=== PATIENT | male | born 1970 | race Caucasian/White ===

== ENCOUNTER → 2021-04-20 10:43 | Outpatient (CLI) | payer BC, SELFPAY ==
--- NOTE | 2021-04-20 10:51 | XR_ITS ---
PROCEDURE: XR LUMBAR SPINE MIN 4V CLINICAL INDICATION: ACUTE LT SIDED LOW BACK MARILEE W/ LT SIDED SCIATICA COMPARISON: No exams were available for comparison FINDINGS: Slight levoscoliosis. Moderate diffuse degenerative changes, particularly at L1-2 L4-5 and L5-S1. SI joints are normal. Mild bilateral facet spondylosis of L4-5 and L5-S1. IMPRESSION: Moderate diffuse degenerative changes, particularly at L1-2 L4-5 and L5-S1. No acute fracture or subluxation. Mild bilateral facet spondylosis of the lower lumbar levels. Dictated by: Victor Manuel Marks MD 04/20/2021 15:54 Victor Manuel Marks MD in [place] 04/20/2021 15:54
== END ==
PROVIDERS: PCP Nurse Practitioner Family; Visit Provider Nurse Practitioner Family
DX: M54.42 Lumbago with sciatica, left side (principal)
CPT/HCPCS: 72110

== ENCOUNTER 2024-01-09 09:06 | Outpatient (CLI) | payer BC, SELFPAY ==
--- NOTE | 2024-01-09 09:11 | XR_ITS ---
FINAL REPORT CLINICAL HISTORY: RT KNEE INJURY- Knee popped posteriorly. Pain in anterior medial knee. Swelling that radiates down into leg. FINDINGS: Right knee Three views were obtained. There is no acute fracture or dislocation. There are moderate degenerative changes. Chronic calcifications are seen superior to the patella. There is a small joint effusion. IMPRESSION: Degenerative changes and small joint effusion. Reviewed, Interpreted and Dictated by Alden Shirley III, MD Transcribed by Camilla Boyle Authenticated and [facility]
== END 2024-01-09 23:59 ==
LOC: RAD 09:07
PROVIDERS: PCP Nurse Practitioner; Visit Provider Nurse Practitioner
DX: S89.91XA Unspecified injury of right lower leg, initial encounter (principal)
CPT/HCPCS: 73562

== ENCOUNTER 2024-01-31 15:00 | Outpatient (RCR) | payer BC, SELFPAY | END 2024-01-31 15:05 | disposition home or self-care (01) | LOC: PT 15:00 | PROVIDERS: Visit Provider Nurse Practitioner | DX: M25.561 Pain in right knee (principal); S89.91XA Unspecified injury of right lower leg, initial encounter | CPT/HCPCS: 97014; 97016; 97110; 97140; 97163; 97530; G0283 ==

== ENCOUNTER 2024-09-02 09:10 | Emergency (ER) | payer BC, SELFPAY ==
[2024-09-02 09:11] VITALS: BP 190/82; PULSE 91; RESP 20; TEMP 36.6; O2SAT 99; BMI 38.7
--- NOTE | 2024-09-02 09:18 | ECG_ITS ---
APPROVED REPORT Exam: Resting ECG HR:87 bpm ECG Measurements Heart Rate 87 AXES NJ 155 P 76 QRSd 100 QRS 50 QT 365 T 58 QTc 409 Conclusion SINUS RHYTHM POSSIBLE RIGHT VENTRICULAR CONDUCTION DELAY [RSR (QR) IN V1/V2] BORDERLINE ECG UNCONFIRMED REPORT Electronically signed by : YARIEL BLANCHARD, 09/03/2024 05:27:58
--- NOTE | 2024-09-02 09:25 | CT_ITS ---
PROCEDURE INFORMATION: Exam: CTA Chest With Contrast Exam date and time: 09/02/2024 9:50 AM Age: 54 years old Clinical indication: Other: Sharp back pain; Additional info: HTN, sharp pain into back, concern for dissection TECHNIQUE: Imaging protocol: Computed tomographic angiography of the chest with contrast. Exam focused on the arteries. 3D rendering (Not supervised by radiologist): MIP and/or 3D reconstructed images were created by the technologist. Radiation optimization: All CT scans at this facility use at least one of these dose optimization techniques: automated exposure control; mA and/or kV adjustment per patient size (includes targeted exams where dose is matched to clinical indication); or iterative reconstruction. Contrast material: ISOVUE 370; Contrast volume: 80 ml; Contrast route: INTRAVENOUS (IV); COMPARISON: CR XR CHEST 2V 09/02/2024 9:37 AM FINDINGS: Pulmonary arteries: Normal. No pulmonary emboli. Aorta: Unremarkable. No aortic aneurysm. No aortic dissection. Lungs: Unremarkable. No consolidation. No masses. Pleural spaces: Unremarkable. No pneumothorax. No pleural effusion. Heart: Unremarkable. No cardiomegaly. No pericardial effusion. Lymph nodes: Unremarkable. No enlarged lymph nodes. Bones/joints: Unremarkable. No acute fracture. Soft tissues: Unremarkable. IMPRESSION: No acute findings.
--- NOTE | 2024-09-02 09:25 | ED_ITS ---
Discharge Plan Disposition Patient Disposition: Home, Self-Care Condition: Good Prescriptions Prescriptions: New hydroxyzine pamoate [Vistaril] 25 mg capsule 25 mg PO ONCE PRN (Reason: anxiety) Qty: 30 0RF Referrals Follow up/Referrals: Karina Hankins APRN [Primary Care Provider] - See instructions Clinical Impressions Clinical Impression: Acute anxiety, Hypertension, Back pain Instructions Patient Instructions: Anxiety Disorders Print Language Print Language: Hungarian Discharge ED Provider: Job Multani General Adult HPI General Chief complaint: Anxiety Stated complaint: arms heavy, pain in back, sweating, high heart rat Time Seen by Provider: 09/02/24 09:14 Mode of Arrival: Ambulatory Source of Information: Patient Limitations: No Limitations Description of Symptoms (Recalled from ER Triage Doc. by RN): Patient presents to ED stating he feels 'different'. Patient reports it started last night around 02:30am. Patient states it felt like an anxiety attack. Reports feels like a knife in his back . States his legs and arm feel heavy as well. History of Present Illness HPI narrative: 54yoM patient presents with a chief complaint of feeling weird this morning, experiencing heavy limbs, and a sensation of a knife stuck in his upper back. He reports waking up last night around 2:30 AM with symptoms resembling an anxiety attack, including increased heart rate and diaphoresis. The patient describes a persistent tingling sensation in all of his limbs and heaviness in his legs while walking. He mentions feeling delayed and having difficulty describing the weird sensation. He has a history of hypertension and is currently taking Bystolic (20 mg) and Losartan (50 mg) for blood pressure management. He reports a blood pressure reading of 154/88 earlier in the day. The patient denies any recent fever, shortness of breath, abdominal pain, nausea, or vomiting. He mentions not having eaten anything this morning. The patient has a history of anxiety and is taking Prozac. He reports being under significant financial stress Please note that above description of symptoms, in this electronic medical record under categorization of recalled from ER triage doctor by RN are reflective of an initial nursing assessment, however, is not reflective of my full history and physical exam that was personally taken and clarified. Consequentially, this preceding description of symptoms, which may include the patient's categorized chief complaint in the EMR, do not reflect my personal clinical impression, and the ultimate description of history of present illness and patient stated complaints should be deferred to this section of the note. Unless stated otherwise or congruent with this section of the note, additional signs, symptoms, or incongruence should be interpreted as inaccurate with my clinical impression. Related Data Previous Rx's ?Medication ?Instructions ?Recorded hydroxyzine pamoate 25 mg capsule 25 mg PO ONCE PRN anxiety #30 caps 09/02/24 (Vistaril) Allergies Allergy/AdvReac Type Severity Reaction Status Date / Time No Known Allergies Allergy Verified 09/02/24 09:25 [facility] Disclaimer: The information contained in this section may have been updated after the patient was seen, as this information can be updated by other users. Social History Smoking Status: Current every day smoker alcohol intake: never current occupational status: employed Travel in the last 8 weeks: None ROS Obtained: Yes Systems reviewed as appropriate & no additional complaints except as documented Physical Exam General General appearance: alert and in no apparent distress Head Head exam: atraumatic and normocephalic Eye Eye exam: Present normal appearance and EOMI ENT ENT exam: Present normal exam Neck Neck exam: Present normal inspection Chest Chest inspection: Present normal inspection and symmetric chest wall rise Respiratory Respiratory exam: Present normal lung sounds bilaterally; Absent respiratory distress or wheezes Cardiovascular Cardiovascular exam: Present regular rate, normal rhythm and normal heart sounds; Absent bradycardia or tachycardia Abdominal Exam Abdominal exam: Present soft and normal bowel sounds; Absent distention, tenderness, guarding or rebound exam: Present deferred Extremities Exam Extremities exam: Present normal inspection and full ROM; Absent tenderness Back Exam Back exam: Present normal inspection Neurological Exam Neurological exam: Present alert and oriented X3 Psychiatric Psychiatric exam: Present normal affect and normal mood Skin Skin exam: Present warm, dry, intact and normal color; Absent rash Medical Decision Making Medical Records Medical records reviewed: Yes I reviewed the patient's medical records. Screening: Per USPSTF and CDC recommendations, given the prevalence of disease in our region, it is our hospital?s policy to screen for HIV and viral Hepatitis for all patients aged 18 and over and those with ongoing risk factors. Jesse Inquiry Pt receiving controlled substance: No Jesse was queried for this patient: No Vital Signs: 09/02/24 09:11 09/02/24 10:01 09/02/24 10:30 Temperature 97.8 F Temperature Source Oral Pulse Rate 77 71 Pulse Rate [Right Brachial] 91 H Respiratory Rate 20 Blood Pressure 154/69 H 149/71 H Blood Pressure [Right Arm] 190/82 H Blood Pressure Mean [Right Arm] 118 Blood Pressure Source [Right Arm] Manual Cuff/ Auscultation Blood Pressure Position [Right Arm] Supine 02 Sat by Pulse Oximetry 99 97 95 Oxygen Delivery Method Room Air Room Air Lab Data Lab Results 09/02/24 09:17: WBC 7.9, RBC 5.45, Hgb 17.4, Hct 49.4, MCV 90.7, MCH 32.0 H, MCHC 35.3, RDW 13.0, Plt Count 197, MPV 7.5, Neut % (Auto) 52.0, Lymph % (Auto) 37.5, Huron % (Auto) 6.4, Eos % (Auto) 2.5, Baso % (Auto) 1.6, Neut # (Auto) 4.1, Lymph # (Auto) 3.0, Hur[place] # (Auto) 0.5, Eos # (Auto) 0.2, Baso # (Auto) 0.1, Sodium 138, Potassium 4.5, Chloride 102, Carbon Dioxide 27, Anion Gap 13.5, BUN 18, Creatinine 1.00, Estimated Creat Clear 148, Estimated GFR 78, Est GFR ( Amer) 95, Glucose 185 H, Calcium 9.0, Total Bilirubin 1.1, AST 49, ALT 50, Alkaline Phosphatase 103, Troponin I < 0.01, Total Protein 8.3 H, Albumin 4.6, Globulin 3.7 H, Albumin/Globulin Ratio 1.2, HIV 1&2 Antibody Rapid Nonreactive 09/02/24 09:17 09/02/24 09:17 Orders (Tests/Meds): ED MEDICATIONS Generic Name Dose Route Start Last Admin Trade Name Freq PRN Reason Stop Dose Admin Sodium Chloride 10 ml 09/02/24 09:51 09/02/24 09:52 Sodium Chloride 0.9% 10ml Syr (Rad Only) IV 10/02/24 09:50 10 ml NEEDED PRN Administration Maintain IV Site Discontinued Medications Generic Name Dose Route Start Last Admin Trade Name Freq PRN Reason Stop Dose Admin Hydroxyzine Pamoate 50 mg 09/02/24 09:25 09/02/24 09:31 Hydroxyzine Pamoate 25mg Capsule PO 09/02/24 09:26 50 mg ONCE ONE Administration Iopamidol 80 ml 09/02/24 09:51 09/02/24 09:52 Iopamidol-370 (76%);100ml Bottle IV 09/02/24 09:52 80 ml ONCE ONE Administration Sodium Chloride 50 ml 09/02/24 09:51 09/02/24 09:51 0.9 % Sodium Chloride 50 Ml Vial IV 09/02/24 09:52 50 ml ONCE ONE Administration ORDERS Category Date Time Status CT angio chest - dissection Stat Cat Scan 09/02/24 09:25 Completed XR chest 2V Stat Exams 09/02/24 09:26 Completed Complete Blood Count Auto Diff Stat Lab 09/02/24 09:17 Completed Comprehensive Metabolic Panel Stat Lab 09/02/24 09:17 Completed HIV (1&2) Antibody Rapid Stat Lab 09/02/24 09:17 Completed Hep C Ab with Reflex to RNA Stat Lab 09/02/24 09:17 Received Troponin I Stat Lab 09/02/24 09:17 Completed ECG Data Tracing #1: I reviewed this ECG and interpreted as documented below: Normal sinus rhythm, normal axis, normal intervals, no noted ST elevation HEART Score History (anamnesis): Slightly suspicious ECG: Normal Age: 45-65 years Risk factors: 1-2 risk factors Troponin: </= normal limit HEART Score: 2 Medical Decision Narrative: Patient with history and exam per above presenting for evaluation of hypertension, self-reported strange feeling in the limbs as well as sharp pain between shoulder blades Diagnoses considered include hypertensive urgency, anxiety, panic attack, aortic dissection, ACS ED workup and treatment included: As above Labs were independently interpreted by me, significant for negative troponin, no acute actionable electrolyte abnormalities, CMP grossly nonactionable. No noted leukocytosis, no noted anemia, CBC grossly nonactionable Imaging was independently visualized and interpreted by me, significant for CTA chest with no acute pathology on my review, no noted dissection or aneurysm. No noted acute cardiopulmonary pathology. Chest x-ray with no acute cardiopulmonary process Please refer to radiology report for full details. My clinical impression at this time is most consistent with anxiety, patient states he is feeling much better at this time, believes hydroxyzine helped him. Blood pressure has improved. At this time medically cleared for discharge with outpatient follow-up. Given strict instructions to return to ED if symptoms worsen otherwise he is going to follow-up with his primary care provider as he has a scheduled appointment coming up in the next week. Prescribing short course of hydroxyzine. I discussed my clinical impression with patient and answered all questions. At this time, the evidence for any other entities in the differential is insufficient to warrant any further testing or ED observation. This was explained to the patient. The patient was advised that persistent or worsening symptoms require further evaluation. Critical Care Critical Care Time Critical Care Time: Yes Attestation: On 09/02/24, the high probability of a clinically significant, sudden or life threatening deterioration of the following system(s) required my full and direct attention, intervention and personal management. The time I documented below is in addition to time spent performing reported procedures but includes the following listed in this critical care notation. Total Time Total Critical Care Time: 35
--- NOTE | 2024-09-02 09:26 | XR_ITS ---
PROCEDURE INFORMATION: Exam: XR Chest Exam date and time: 09/02/2024 9:37 AM Age: 54 years old Clinical indication: Other: Back pain, mediastinum eval; Additional info: HTN, back pain, mediastinum eval TECHNIQUE: Imaging protocol: Radiologic exam of the chest. Views: 2 views. COMPARISON: No relevant prior studies available. FINDINGS: Lungs: Unremarkable. No consolidation. Pleural spaces: Unremarkable. No pleural effusion. No pneumothorax. Heart/Mediastinum: Unremarkable. No cardiomegaly. Bones/joints: Unremarkable. IMPRESSION: No acute findings.
[2024-09-02] MEDS: hydrOXYzine pamoate 25MG CAPSULE 50 MG PO (09:31)
[2024-09-02 09:37] LABS: Basophils # 0.1 K/mm3 (0-0.2); Basophils % 1.6 % (0.1-2.0); Eosinophils # 0.2 K/mm3 (0.0-0.4); Eosinophils % 2.5 % (0.1-12.0); Hematocrit 49.4 % (42.0-52.0); Hemoglobin 17.4 g/dL (14.1-18.0); Lymphocytes % 37.5 % (10-50); Mean Corpuscular HGB Conc 35.3 g/dL (31.8-35.4); Mean Corpuscular Volume 90.7 fl (80-94); Mean Platelet Volume 7.5 fl (7.4-10.4); Monocytes # 0.5 K/mm3 (0.1-1.0); Monocytes % 6.4 % (1.7-9.3); Neutrophils # 4.1 K/mm3 (1.8-7.8); Platelet Count 197 K/mm3 (142-424); Red Blood Count 5.45 M/mm3 (4.60-6.20); White Blood Count 7.9 K/mm3 (4.8-10.8)
[2024-09-02 09:39] LABS: Chloride 102 mmol/L (98-107)
[2024-09-02 09:40] LABS: Albumin Level 4.6 g/dl (3.5-5.0); Potassium 4.5 mmoL/L (3.5-5.1); Sodium 138 mmol/L (136-145)
[2024-09-02 09:42] LABS: Alanine Aminotransferase 50 U/L (12-78); Anion Gap 13.5 mEq/L (5-15); Aspartate Amino Transferase 49 U/L (17-59); Blood Urea Nitrogen 18 mg/dl (9-20); Carbon Dioxide 27 mmol/L (22.0-30.0); Creatinine Clearance Estimated 148 mL/min (50-200); Estimated Glomerular Filt Rate 78 ml/min (>60); GFR (African American) 95 ML/MIN (>60)
[2024-09-02 09:43] LABS: Albumin/Globulin Ratio 1.2 (1.1-1.8); Alkaline Phosphatase 103 U/L (38-126); Bilirubin,Total 1.1 mg/dl (0.2-1.3); Globulin 3.7 g/dL (1.3-3.2); Glucose 185 mg/dl (74-100); Total Protein,Serum 8.3 g/dl (6.3-8.2)
[2024-09-02] MEDS: 0.9 % SODIUM CHLORIDE 50 ML VIAL IV (09:51)
[2024-09-02] MEDS: IOPAMIDOL-370 (76%);100ML BOTTLE 80 ML IV (09:52)
[2024-09-02] MEDS: SODIUM CHLORIDE 0.9% 10ML SYR (RAD ONLY) 10 ML IV (09:52)
[2024-09-02 10:01] VITALS: BP 154/69; PULSE 77; O2SAT 97
[2024-09-02 10:19] LABS: Troponin I < 0.01 ng/ml (0.00-0.034)
[2024-09-02 10:30] VITALS: BP 149/71; PULSE 71; O2SAT 95
[2024-09-02 10:32] LABS: HIV (1&2) Antibody Rapid NONREACTIVE (NONREACTIVE)
[2024-09-02 11:01] VITALS: BP 165/64; PULSE 67; O2SAT 97
[2024-09-02 11:13] VITALS: BP 165/64; PULSE 66; RESP 18; TEMP 37; O2SAT 97
[2024-09-03 09:38] LABS: HCV Ab Non Reactive (Non Reactive)
== END 2024-09-02 11:20 | disposition home or self-care (01) ==
PROVIDERS: Emergency Provider Student in an Organized Health Care Education/Training Program; PCP Nurse Practitioner
DX: R00.0 Tachycardia, unspecified (principal); M54.9 Dorsalgia, unspecified; R61 Generalized hyperhidrosis; I10 Essential (primary) hypertension; F41.9 Anxiety disorder, unspecified; F17.210 Nicotine dependence, cigarettes, uncomplicated
CPT/HCPCS: 71046; 71275; 80053; 84484; 85025; 86803; 87389; 93005; 99291; Q9967

== ENCOUNTER 2024-10-16 12:59 | Outpatient (CLI) | payer BC, SELFPAY ==
--- NOTE | 2024-10-16 13:05 | CT_ITS ---
APPROVED REPORT Field Insurance Sales Manager: CLINICAL INDICATION Risk stratification TECHNIQUE Image Acquisition: A 128 slice MDCT scanner (CELtraka View) was used for data acquisition. A noncontrast coronary calcium scan was performed. A CT attenuation threshold of 130 Hounsfield units (HU) was used for the detection of calcium in contiguous voxels of 1 sq mm in area to be counted as individual lesions. A tube voltage of 120 KVp was used. The patient received no medications prior to the coronary calcium CT. Image Reconstruction Transaxial images were reconstructed at 0.67 mm slide thickness. Data was reviewed interactively on an advanced workstation capable of 2 and 3-dimensional displays in all conventional reconstruction formats, including multiplanar reformations, maximum intensity projections, curved multiplanar reformations, and volume rendered reconstructions. When applicable, selected routine images describing the relevant coronary anatomy and pathology were saved and sent to PACS. Complications None Technical Quality Overall image quality was good. Total DLP (Dose-Length Product) is 21.5.9 mGy-cm. The reported value represents the total of one or more individual components during the CT acquisition of this date and at this time, and as such, the same value may appear in more than one CT report depending on the interpreting/reporting physicians. COMPARISON None FINDINGS CT Coronary Calcium Scoring LMA (Left Main Artery) = 0 LAD (Left Anterior Descending) = 175 LCX (Left Coronary Circumflex) = 174 RCA (Right Coronary Artery) = 103 Total Calcium Score = 453 using the AJ-130 method. There is also calcification in the aortic valve and the mitral annulus. IMPRESSION -Coronary artery calcification is present. -Total Calcium Score (Agatston Score) = 453 using the AJ-130 method. -The observed calcium score of 453 is at 96th percentile for subjects of the same age, sex, and race/ethnicity. The interpretation of the calcium heart score is based on the following continuum*: 0 = no calcified plaque detected (risk of coronary artery disease is very low ??? less than 5%) 1-10 = calcium detected in extremely minimal levels (risk of coronary diseases is still low ??? less than 10%) 11-100 = mild levels of plaque detected with certainty (mild or minimal narrowing of heart arteries is likely) 101-400 = definite,at least moderate levels of plaque detected (relatively high risk of a heart attack within 3-5 years) >401-999 = extensive levels of plaque detected (high risk of heart attack, high levels of vascular disease are present, high likelihood of at least one significant coronary narrowing) *The calcium heart score quantifies the burden of coronary calcification/plaque in the coronary arteries. The calcium heart score does not evaluate the presence or the burden of non-calcified (i.e. soft) plaque. The coronary and cardiac findings of this Coronary Calcium CT were reviewed, reported, and signed by Minesh Youssef MD (Implementation Manager). Conclusion Electronically signed by : Veronika Youssef MD 10/17/2024 12:30:44
== END 2024-10-16 23:59 | disposition home or self-care (01) ==
LOC: RAD 13:00
PROVIDERS: PCP Nurse Practitioner; Visit Provider Physician Assistant
DX: I25.10 Atherosclerotic heart disease of native coronary artery without angina pectoris (principal); Z82.49 Family history of ischemic heart disease and other diseases of the circulatory system
CPT/HCPCS: 75571

== ENCOUNTER 2024-10-16 13:02 | Outpatient (CLI) | payer BC, SELFPAY ==
--- NOTE | 2024-10-16 13:13 | CA_ITS ---
APPROVED REPORT EXAM: Comprehensive 2D, Doppler, and color-flow Echocardiogram Manager Music: Alberta Alvarez RVT Ht: 5 ft 10 in Wt: 280lbs BSA: 2.41 BP: 159/80 mmHg Indications: HTN,SMOKER,ASCVD 2D Dimensions IVSd 1.08 cm M: 0.6-1.2 LVEF (Visual) 62.40 % PWd 0.94 cm M: 0.6 - 1.2 LA Volume 52.40 mL LVDd 4.73 cm M: 4.2 - 5.9 LA Volume Index 21.74 mL/m2 (M/F) 16-34 LVDs 3.14 cm M: 2.5 - 4.0 EF AP4 59.70 % GL Strain -19.8 % M-Mode Dimensions LA Diam 3.73 cm (1.9-4.0) LV Diastology E Decel Time 300 (160-240 msec) E/A Ratio 1.1 Aortic Valve ROSIBEL Index 0.92 cm2/m2 AoV Peak Hugo. 196.0 (50-130 cm/s) AO Peak GR. 15.40 mmHg AO Mean GR. 7.70 (<5 mmHg) AO VTI 42.4 (18-25 cm) ROSIBEL (VTI) 2.27 (2.5-4.5 cm2) Mitral Valve MV E Max Hugo. 79.0 (40-130 cm/s) MV A Velocity 71.0 (40-130 cm/s) E/A Ratio 1.10 MV PHT 88.0 ms Pulmonary Valve PV Peak Velocity 78.0 (50-150 cm/s) Tricuspid Valve TR P. Velocity 195.00 cm/s RAP Estimate 10.00 mmHg RVSP 25.20 mmHg Left Ventricle The left ventricle is normal size. The left ventricular systolic function is normal. The left ventricular ejection fraction is within the normal range. There is increased LV wall thickness. There is normal LV segmental wall motion. The left ventricular diastolic function is normal. LVEF is 55%. Right Ventricle Right ventricle is mildly dilated. The right ventricular systolic function is normal. Atria The left atrium size is normal. The right atrium size is normal. There is no Doppler evidence of interatrial shunt. Aortic valve is mildly thickened. Aortic Valve Mild aortic stenosis. ROSIBEL by continuity equation is 2.0 cm???. Peak velocity 2.0 m/s. Mean AV gradient 8 mmHg. Max AV gradient 15.4 mmHg. No aortic regurgitation is present. Mitral Valve The mitral valve leaflets are mildly thickened. No evidence of mitral valve stenosis. Trace mitral regurgitation. Tricuspid Valve Tricuspid valve is grossly normal in structure and function. Trace tricuspid regurgitation. There is insufficient TR jet to estimate RVSP. Pulmonic Valve The pulmonary valve is normal in structure. Trace pulmonic regurgitation. Great Vessels The aortic root is normal in size. IVC is normal in size and collapses >50% with inspiration. Pericardium There is no pericardial effusion. Other Information Study Quality: Fair Conclusion Normal biventricular systolic function. Mild RV dilation. Mild (ROSIBEL by continuity equation is 2.0 cm???. Peak velocity 2.0 m/s. Mean AV gradient 8 mmHg. Max AV gradient 15.4 mmHg). Electronically signed by : Veronika Youssef MD 10/22/2024 15:14:54
== END 2024-10-16 23:59 | disposition home or self-care (01) ==
LOC: RT 13:02
PROVIDERS: PCP Nurse Practitioner; Visit Provider Physician Assistant
DX: I51.7 Cardiomegaly (principal); I25.10 Atherosclerotic heart disease of native coronary artery without angina pectoris; Z82.49 Family history of ischemic heart disease and other diseases of the circulatory system
CPT/HCPCS: 93306

== ENCOUNTER 2024-11-05 07:46 | Outpatient (CLI) | payer BC, SELFPAY ==
--- NOTE | 2024-11-05 | CA_ITS ---
APPROVED REPORT Exam: Exercise Treadmill Technologist: Gilma Thao Ht: 5 ft 10 in Wt: 280 lbs BSA: 2.41 m2 Medical History Medications: Fluoxetine, HCTZ, Vistaril, Nebivolol Allergies: No known drug allergies Stress Test Details Test: Exercise stress testing was performed using a Amado protocol. HR Resting HR: 79 bpm Max Heart Rate (APMHR): 167 bpm Max HR Achieved: 146 bpm Target HR (85% APMHR): 142 bpm % of APMHR: 87 Recovery HR: 99 bpm HR response to stress: Normal HR response to stress BP Resting BP: 179.0/86.0 mmHg Max BP: 182.0/90.0 mmHg Recovery BP: 161.0/68.0 mmHg BP response to stress: Normal blood pressure response to stress. ECG Resting ECG: SR Stress EC.[address] depression Arrhythmia: PVCs Recovery ECG: Return to baseline within 3 minutes of recovery Recovery Arrhythmia: PVCs Clinical Highest Stage Achieved: III Stress ECG Conclusion Max HR: 146 % of PM: 87% Max BP: 180/90 METs: 10.3 Test stopped due to: Fatigue Symptoms: fatigue Arrhythmias/Ectopy: PVCs ST-T Changes: 0.[address] depression Conclusion: Average exercise capacity. Normal EKG response to exercise. GXT only (no imaging). Electronically signed by : Veronika Youssef MD 11/06/2024 20:30:18
--- NOTE | 2024-11-05 07:47 | NM_ITS ---
APPROVED REPORT Exam: Nuclear Stress Test Indication: HTN, CAD, Tobacco use, Family history Patient Location: Outpatient Stress Tech: Gilma Banuelos [place] Tech:Brianna Cuba, ARRT, RT (R)(N) Ht: 5 ft 10 in Wt: 280 lbs HR: 78 bpm BP: 179/86 mmHg BSA: 2.41 m2 TID: 1.01 BMI: 40.1 History: HTN, CAD, Tobacco use, Family history Procedure: Patient exercised on Amado protocol 9:00 minutes and sec, resting heart rate 78 bpm, resting blood pressure 179/86 mmHg, with exercise maximum heart rate achived was 146 bpm which is % of the maximum predicted heart rate and blood pressure was 182/90 mmHg. Test was stopped due to SOB. Patient has average exercise capacity, achieved 10.3 METs of workload on treadmill, the blood pressure response to exercise was normal. Cardiac Stress and Resting SPECT Images: Cardiac Stress and Resting SPECT images were obtained using technetium 99m Myoview 31.6 mCi stress and 10.29 mCi at rest. Resting and stress imaging in supine and prone positions demonstrate a medium-sized, moderate, partially reversible perfusion defects in the basal to mid inferior LV foster. Gated imaging demonstrates normal global and regional LV systolic function. LVEF is calculated at 57%. Conclusion: Medium-sized, moderate, partially reversible perfusion defects in the basal to mid inferior LV foster. Findings are suggestive of partial reversible ischemia. Gated imaging demonstrates normal global and regional LV systolic function. LVEF is calculated at 57%. Electronically signed by : Veronika Youssef MD 11/06/2024 20:26:12
[2024-11-05] MEDS: ISOTOPE MYOVIEW (PER STUDY) 1 DOSE IV (09:23)
[2024-11-05] MEDS: SODIUM CHLORIDE 0.9% 10ML SYR (RAD ONLY) 10 ML IV ×2 (09:23)
== END 2024-11-05 23:59 | disposition home or self-care (01) ==
PROVIDERS: PCP Nurse Practitioner; Visit Provider Physician Assistant
DX: R93.1 Abnormal findings on diagnostic imaging of heart and coronary circulation (principal); I10 Essential (primary) hypertension; E66.01 Morbid (severe) obesity due to excess calories
CPT/HCPCS: 78452; 93017; 93018; A9502

== ENCOUNTER 2024-11-18 14:58 | Outpatient (CLI) | payer BC, SELFPAY ==
[2024-11-18 15:24] LABS: Basophils # 0.1 K/mm3 (0-0.2); Basophils % 1.4 % (0.1-2.0); Eosinophils # 0.2 K/mm3 (0.0-0.4); Eosinophils % 3.1 % (0.1-12.0); Hematocrit 41.6 % (42.0-52.0); Hemoglobin 14.7 g/dL (14.1-18.0); Lymphocytes # 2.4 K/mm3 (0.7-4.5); Lymphocytes % 33.3 % (10-50); Mean Corpuscular HGB Conc 35.3 g/dL (31.8-35.4); Mean Corpuscular Volume 93.5 fl (80-94); Mean Platelet Volume 10.2 fl (7.4-10.4); Monocytes # 0.8 K/mm3 (0.1-1.0); Monocytes % 11.2 % (1.7-9.3); Neutrophils # 3.6 K/mm3 (1.8-7.8); Neutrophils % 50.6 % (37.0-80.0); Platelet Count 204 K/mm3 (142-424); Red Blood Count 4.45 M/mm3 (4.60-6.20); Red Cell Distribution Width 11.8 % (11.5-17.5); White Blood Count 7.1 K/mm3 (4.8-10.8)
[2024-11-18 15:36] LABS: Alanine Aminotransferase 38 U/L (12-78); Alkaline Phosphatase 113 U/L (38-126); Aspartate Amino Transferase 39 U/L (17-59); Bilirubin,Direct 0.2 mg/dl (0.0-0.4); Bilirubin,Total 0.8 mg/dl (0.2-1.3); Bilirubin,Unconjugated 0.6 mg/dL (0.0-1.1); Blood Urea Nitrogen 21 mg/dl (9-20); Calcium 9.2 mg/dl (8.4-10.2); Carbon Dioxide 29 mmol/L (22.0-30.0); Cholesterol 263 mg/dl (140-200); Glucose 99 mg/dl (74-100); HDL Cholesterol 50 mg/dl (40-60); Total Protein,Serum 7.5 g/dl (6.3-8.2)
[2024-11-18 15:41] LABS: Albumin Level 4.3 g/dl (3.5-5.0); Chloride 100 mmol/L (98-107); Potassium 4.3 mmoL/L (3.5-5.1); Sodium 134 mmol/L (136-145); Triglycerides 443 mg/dl (30-150)
[2024-11-18 15:43] LABS: Estimated Glomerular Filt Rate 70 ml/min (>60); GFR (African American) 85 ML/MIN (>60)
[2024-11-18 15:44] LABS: Anion Gap 9.3 mEq/L (5-15); Bilirubin,Indirect 0.6 mg/dL (0.0-0.9)
[2024-11-18 15:45] LABS: Chol/HDL Ratio 5.3 (1-3.5)
[2024-11-18 15:47] LABS: Direct LDL Cholesterol 40.76 mg/dL (100-129)
== END 2024-11-18 23:59 | disposition home or self-care (01) ==
LOC: LAB 14:59
PROVIDERS: PCP Nurse Practitioner; Visit Provider Physician Assistant
DX: R93.1 Abnormal findings on diagnostic imaging of heart and coronary circulation (principal); R73.03 Prediabetes; Z82.49 Family history of ischemic heart disease and other diseases of the circulatory system; I25.10 Atherosclerotic heart disease of native coronary artery without angina pectoris; E66.813 Obesity, class 3; E66.01 Morbid (severe) obesity due to excess calories; Z68.41 Body mass index [BMI] 40.0-44.9, adult; I10 Essential (primary) hypertension; Z72.0 Tobacco use
CPT/HCPCS: 80048; 80061; 80076; 83735; 85025

== ENCOUNTER 2024-11-22 08:24 | Day surgery (SDC) | payer BC, SELFPAY ==
[2024-11-22] VITALS (11 sets, daily range): BP systolic 110–141; BP diastolic 61–74; PULSE 62–78; RESP 18; O2SAT 94–99; BMI 40.7
--- NOTE | 2024-11-22 07:22 | IR_ITS ---
APPROVED REPORT Patient Location: Outpatient PROCEDURES Left heart catheterization Left ventriculogram Selective coronary angiogram INDICATION Abnormal Myoview, Angina pectoris, Informed consent was obtained prior to the procedure. COMPLICATIONS None Estimated Blood Loss: Less than 10 mls TECHNIQUE One percent lidocaine used to anesthetize the right anterior aspect of the wrist. The right radial artery was accessed via the Seldinger technique. A 6 [place] sheath was placed in the right radial artery. 2.5 mg of Verapamil, 800 mcg of nitroglycerin, 1mg Lidocaine and 5000 U Heparin were given through the arterial sheath. The 6 [place] JL 3 guide catheter was also used to perform left heart catheterization, left ventriculogram and selective coronary angiogram. At the end of the procedure the sheath was removed good hemostasis was achieved using Traclet band, patient was transferred to the postop holding area in stable condition. ANGIOGRAPHIC RESULTS The left main artery Normal The left anterior descending artery Is a small vessel and has proximal 10% luminal irregularity with a mid vessel 20% luminal regularities The circumflex artery Massively large and dominant which is normal through the proximal and mid segment. 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 Recommend medical management with aggressive risk factor modification and maximizing antianginal medications 2. Should patient develop recalcitrant angina pectoris refractory to medical management the terminal obtuse marginal artery/posterior descending artery could be stented however as of now I think medical management is most warranted Electronically signed by : Jr Esposito MD 11/22/2024 14:28:48
[2024-11-22 09:06] LABS: Basophils # 0.1 K/mm3 (0-0.2); Basophils % 1.1 % (0.1-2.0); Eosinophils # 0.2 K/mm3 (0.0-0.4); Eosinophils % 2.9 % (0.1-12.0); Hematocrit 45.5 % (42.0-52.0); Hemoglobin 15.8 g/dL (14.1-18.0); Lymphocytes # 2.6 K/mm3 (0.7-4.5); Lymphocytes % 33.1 % (10-50); Mean Corpuscular HGB Conc 34.7 g/dL (31.8-35.4); Mean Corpuscular Hemoglobin 32.6 pg (27.0-31.2); Mean Platelet Volume 10.1 fl (7.4-10.4); Monocytes # 0.7 K/mm3 (0.1-1.0); Monocytes % 9.2 % (1.7-9.3); Neutrophils # 4.2 K/mm3 (1.8-7.8); Neutrophils % 53.2 % (37.0-80.0); Platelet Count 236 K/mm3 (142-424); Red Blood Count 4.84 M/mm3 (4.60-6.20); Red Cell Distribution Width 11.9 % (11.5-17.5); White Blood Count 7.8 K/mm3 (4.8-10.8)
[2024-11-22 09:09] LABS: Anion Gap 12.7 mEq/L (5-15); Blood Urea Nitrogen 22 mg/dl (9-20); Calcium 9.1 mg/dl (8.4-10.2); Carbon Dioxide 26 mmol/L (22.0-30.0); Chloride 103 mmol/L (98-107); Creatinine Clearance Estimated 156 mL/min (50-200); Estimated Glomerular Filt Rate 78 ml/min (>60); GFR (African American) 95 ML/MIN (>60); Glucose 137 mg/dl (74-100); Potassium 4.7 mmoL/L (3.5-5.1); Sodium 137 mmol/L (136-145)
[2024-11-22] MEDS: HEPARIN 1,000 UNITS/500ML NS (CATH LAB) 3000 UNIT IV (11:19)
[2024-11-22] MEDS: diphenhydrAMINE 50MG/ML VIAL 50 MG IV (11:20)
[2024-11-22] MEDS: VERAPAMIL 2.5MG/ML 2ML VIAL 2.5 MG IV (11:20)
[2024-11-22] MEDS: LIDOCAINE 1% 10ML MDV 20 ML IJ (11:20)
[2024-11-22] MEDS: NITROGLYCERIN 800MCG/8ML SYR (CATH LAB) 800 MCG IA (11:21)
[2024-11-22] MEDS: 0.9 % SODIUM CHLORIDE 500 ML 25 ML IV (11:21)
[2024-11-22] MEDS: MIDAZOLAM HCL 1MG/ML 5ML VIAL 1 MG IV (11:36)
[2024-11-22] MEDS: FENTANYL 100MCG/2ML VIAL 50 MCG IV (11:36)
[2024-11-22] MEDS: IOPAMIDOL-370 (76%);100ML BOTTLE 50 ML IV (13:30)
== END 2024-11-22 14:29 | disposition home or self-care (01) ==
PROVIDERS: PCP Nurse Practitioner; Visit Provider Internal Medicine
DX: I25.118 Atherosclerotic heart disease of native coronary artery with other forms of angina pectoris (principal); I10 Essential (primary) hypertension; R93.1 Abnormal findings on diagnostic imaging of heart and coronary circulation; E66.01 Morbid (severe) obesity due to excess calories; Z68.41 Body mass index [BMI] 40.0-44.9, adult; Z82.49 Family history of ischemic heart disease and other diseases of the circulatory system; F17.210 Nicotine dependence, cigarettes, uncomplicated; Z79.899 Other long term (current) drug therapy
CPT/HCPCS: 80048; 85025; 93458; 99152; C1725; C1769; J1200; J1644; J2250; J3010; Q9967